=== PATIENT | male | born 2000 | race Caucasian/White ===

== ENCOUNTER 2018-01-05 13:39 | Emergency (ER) | payer MEDICAID, OTHER ==
[2018-01-05 13:52] VITALS: BP 152/86
[2018-01-05] MEDS ORDERED: METHYLPREDNISOLONE INJ 125 MG/2 ML SDV IM ONE (14:06)
--- NOTE | 2018-01-05 14:11 | ER Document Report ---
HPI - HPI Pain Level: 1 Notes: Patient is a 17-year-old male who presents to the ED complaining of exposure to poison muna and development of rash over the last 2 days. Rash is pruritic. Patient states that he has had this several times in the past and has needed steroids for it. Patient states that he does have itching and weeping lesions. He otherwise has no other significant past medical history. He has been able to eat and drink without any difficulties. He is urinating normally. No other concerns or complaints. He has not noticed any swelling of his lips, tongue, or throat. He has never had anaphylactic shock from exposure and has not had to be hospitalized in the past or intubated. Denies any headache, fever, neck pain, changes in vision/speech/mentation/hearing, URI, sore throat, chest pain, palpitations, syncope, cough, shortness of breath, wheeze, dyspnea, abdominal pain, nausea/vomiting/diarrhea, urinary retention, dysuria, hematuria, or rash. - ROS Systems Reviewed and Negative: Yes All other systems reviewed and negative - CONSTITUTIONAL Constitutional: DENIES: Fever, Chills Past Medical History - Social History Smoking Status: Never Smoker Chew tobacco use (# tins/day): No Frequency of alcohol use: None Drug Abuse: None Family History: Reviewed & Not Pertinent Patient has suicidal ideation: No Patient has homicidal ideation: No Renal/ Medical History: Denies: Hx Peritoneal Dialysis Vertical Provider Document - CONSTITUTIONAL Agree With Documented VS: Yes Notes: PHYSICAL EXAMINATION: GENERAL: Well-appearing, well-nourished and in no acute distress. A&Ox4. Answers questions appropriately. HEAD: Atraumatic, normocephalic. EYES: Pupils equal round and reactive to light, extraocular movements intact, sclera anicteric, conjunctiva are normal. ENT: Nares patent and without discharge. oropharynx clear without exudates. No tonsilar hypertrophy or erythema. Moist mucous membranes. No sinus tenderness. No angioedema or airway compromise noted. NECK: Normal range of motion, supple without lymphadenopathy LUNGS: Breath sounds clear to auscultation bilaterally and equal. No wheezes rales or rhonchi. HEART: Regular rate and rhythm without murmurs, rubs, gallops. Musculoskeletal: FROM to passive/active. Strength 5+/5. Extremities: No cyanosis, clubbing, or edema b/l. Peripheral pulses 2+. Capillary refill less than 3 seconds. NEUROLOGICAL: Normal speech, normal gait. Normal sensory, motor exams PSYCH: Normal mood, normal affect. SKIN: weeping lesions noted to the extremities and minimally to the forehead. Non-tender. No purulence, induration, or abscess noted. No streaks. - INFECTION CONTROL TRAVEL OUTSIDE OF THE [place] IN LAST 30 DAYS: No Course - Re-evaluation Re-evalutation: 01/05/18 14:08 Patient is an afebrile, well-hydrated, 17-year-old male who presents to the ED with a rash that I suspect to be secondary to poison muna. Physical exam findings consistent with a poison muna rash. Vitals are acceptable without any significant tachycardia, tachypnea, or hypoxia. Patient is nontoxic-appearing and is tolerating p.o. without difficulties. Solu-Medrol given IM today. Low suspicion for any angioedema, sepsis, meningitis, severe dehydration, respiratory compromise, SJS, necrotizing fasciitis, or other systemic emergent condition at this time. Mother and patient aware that condition can change from initial presentation and they need to monitor symptoms closely and seek medical attention with any acute changes. I will send him home with a steroid taper. He may use [id number] cortisone cream as needed. Recheck with your PCM in 2-3 days. Return to the ED with any worsening/concerning symptoms otherwise as reviewed in discharge. Patient is in agreement. - Vital Signs Vital signs: Temp Pulse Resp BP Pulse Ox 98.4 F 88 16 152/86 H 96 01/05/18 13:51 01/05/18 13:51 01/05/18 13:51 01/05/18 13:51 01/05/18 13:51 Discharge - Discharge Clinical Impression: Contact dermatitis Qualifiers: Contact dermatitis type: irritant Contact dermatitis trigger: non-food plants Qualified Code(s): L24.7 - Irritant contact dermatitis due to plants, except food Condition: Stable Disposition: HOME, SELF-CARE Instructions: Poison Muna ([facility]) Additional Instructions: Keep the skin clean Wash with soap and water Tylenol/ibuprofen if needed Triple antibiotic ointment daily for any break in the skin Take medication as directed Monitor for any worsening symptoms Recheck with your PCM in 2-3 days Return to the ED with any worsening symptoms and/or development of fever, headache, chest pain, palpitations, syncope, shortness of breath, trouble breathing, abdominal pain, n/v/d, abscess, purulent discharge, red streaks, worsening swelling, or other worsening symptoms that are concerning to you. Prescriptions: Prednisone 20 mg PO ASDIR #18 tablet Forms: Elevated Blood Pressure Referrals: LAURA EMERSON DO [Primary Care Provider] - Follow up as needed MALATHI WHITTEN DO [ACTIVE STAFF] - Follow up as needed
== END 2018-01-05 14:16 | disposition home or self-care (01) ==
LOC: ER 13:39
DX: L23.7 Allergic contact dermatitis due to plants, except food (principal)
CPT/HCPCS: 99283; 96372; J2930